=== PATIENT | male | born 1975 | race Caucasian/White ===

== ENCOUNTER 2017-02-23 11:41 | Emergency (ER) | payer SELFPAY ==
[2017-02-23 09:05] LABS: BASOPHILS 0.1 %; BASOPHILS ABSOLUTE 0.01 10/3/uL (0.0-0.16); EOSINOPHILS 0 %; HEMATOCRIT 47.3 % (40.0-51.0); HEMOGLOBIN 16.4 g/dL (13.6-17.8); IMMATURE GRANULOCYTES 0.3 %; IMMATURE GRANULOCYTES ABSOLUTE 0.05 10/3/uL (0.0-0.11); LYMPHOCYTES 5.6 %; LYMPHOCYTES ABSOLUTE 0.95 10/3/uL (0.67-4.30); MANUAL DIFF NO %; MEAN CORPUS HGB CONC 34.7 g/dL (32.0-36.0); MEAN CORPUSCULAR HEMOGLOB 31.7 pg (26.0-34.0); MEAN CORPUSCULAR VOLUME 91.3 fL (80-100); MEAN PLATELET VOLUME 9.3 fL (9.2-13.0); MONOCYTES 9.1 %; MONOCYTES ABSOLUTE 1.54 10/3/uL (0.21-1.20); NEUTROPHILS 84.9 %; NEUTROPHILS ABSOLUTE 14.42 10/3/uL (2.02-8.40); PLATELET COUNT 203 10/3/uL (150-400); RBC DISTRIBUTION WIDTH 13.2 % (12.0-16.0); RED CELL COUNT 5.18 10/6/uL (4.7-6.1)
[2017-02-23 09:16] LABS: BUN (BLOOD UREA NITROGEN) 9 MG/DL (6-23); CALCIUM, SERUM 9.9 MG/DL (8.5-10.4); CHLORIDE, SERUM 100 MMOL/L (96-112); CO2 (CARBON DIOXIDE) 27 MMOL/L (24-34); CREATININE 0.88 MG/DL (0.70-1.30); GFR AFRICAN AMERICAN 122 ML/MIN (>=60); GFR NON AFRICAN AMERICAN 105 ML/MIN (>=60); GLUCOSE, SERUM 132 MG/DL (60-99); POTASSIUM, SERUM 3.9 MMOL/L (3.5-5.3); SODIUM, SERUM 138 MMOL/L (135-148)
[2017-02-23 11:19] LABS: PROCALCITONIN 0.17 ng/mL (<0.5)
[2017-02-23 11:24] LABS: ASCORBIC ACID (UR NOT ORDER) NEG (NEG); BILIRUBIN, URINE NEGATIVE (NEG); ER URINALYSIS TAT 0 Hrs 20 Mins; KETONE, URINE 20 MG/DL (NEG); LEUKOCYTE ESTERASE(NOT OR NEG (NEG); NITRITE (URINE) NEG (NEG); WBC (NOT ORDERED) (RFLEX) 1 (0-5)
[2017-02-23 11:26] LABS: LACTATE 0.9 MMOL/L (0.3-2.4)
== END 2017-02-23 12:45 | disposition home or self-care (01) ==
LOC: ER 11:41
PROVIDERS: Emergency Medicine; Nurse Practitioner
DX: M54.9 Dorsalgia, unspecified (principal); F17.200 Nicotine dependence, unspecified, uncomplicated
CPT/HCPCS: 71020; 74176; 80048; 81001; 83605; 83690; 84145; 85025; 96372; 99284; A9270-GY; J1885